=== PATIENT | female | born 1990 | race Caucasian/White ===

== ENCOUNTER 2018-08-18 11:32 | Emergency (ER) | payer OTHER ==
[~2018-08-18] VITALS: Ht 162.6 cm; Wt 63.5 kg
[2018-08-18 11:45] VITALS: BP 117/82
[2018-08-18] MEDS ORDERED: IBUPROFEN 100 MG/5 ML SUSPENSION UDCUP PO ONE (13:15)
== END 2018-08-18 13:45 | disposition home or self-care (01) ==
LOC: EMS 11:33
DX: J02.0 Streptococcal pharyngitis (principal)